=== PATIENT | male | born 1975 | race Caucasian/White ===

== ENCOUNTER 2021-02-07 21:54 | Observation (INO) ==
[2021-02-07] MEDS ORDERED: SODIUM CHLORIDE 0.9% 1,000 ML IV STA (22:30)
[2021-02-07 23:18] LABS: Basophils # 0.1 10*3/uL (0.0-0.2); Basophils % 1.1 % (0.0-0.8); Eosinophils # 0.2 10*3/uL (0.0-0.87); Hematocrit 39.4 VOL% (42.0-52.0); Hemoglobin 13.2 GM/DL (14.0-18.0); Immature Granulocytes % 0.3 %; Immature Granulocytes Absolute 0.02 #; Lymphocytes # 2.1 10*3/uL (1.4-4.0); Lymphocytes % 26.3 % (21.2-54.2); Mean Corpuscular HGB Conc 33.5 GM/DL (32-36); Mean Corpuscular Volume 93.8 FL (87-102); Monocytes % 8.7 % (1.7-12.7); Neutrophils % 61.6 % (38.7-73.9); Platelet Count 274 T/CUMM (130-400); Red Cell Distribution Width 12.7 % (9.3-17.3); White Blood Count 7.9 T/CUMM (4-12)
[2021-02-07 23:33] LABS: Albumin 3.7 G/DL (3.4-5.0); Bilirubin,Total 0.4 MG/DL (0.2-1.0); Calcium 8.8 MG/DL (8.5-10.1); Osmolality,Calculated 271.8 MOS/KG (273-304); Potassium 4.3 MMOL/L (3.5-5.1); Total Protein 7.4 G/DL (6.4-8.2)
[2021-02-08 00:03] LABS: Amorphous Crystals,Urine Many /HPF (Few); Bilirubin,Urine Negative (Negative); Blood, Urine Negative (Negative); Glucose,Urine (UA) Negative (Negative); Ketones,Urine Negative (Negative); Mucus,Urine Occasional /LPF (Occasional); Nitrite,Urine Negative (Negative); Protein,Urine Negative; RBC,Urine 2 /HPF (0-4); Urine Appearance Slightly Hazy (Clear); Urine Color Yellow (Yellow); Urine Specific Gravity 1.015 (1.001-1.035); Urine Urobilinogen < 2.0 EU/DL (0.2-1.0)
[2021-02-08 00:15] LABS: Barbiturates Screen,Urine Negative (Negative); Benzodiazepines Screen,Urine Negative (Negative); Cannabinoid Screen,Urine Positive (Negative); Opiate Screen,Urine Negative (Negative); Phencyclidine Screen,Urine Negative (Negative)
[2021-02-08] MEDS ORDERED: HALOPERIDOL 5 MG/ML AMP IV STA (01:26)
[2021-02-08] MEDS: SODIUM CHLORIDE 0.9% 1,000 ML IV SCH ×2 (04:45→15:29)
[2021-02-08] MEDS: ENOXAPARIN 40 MG/0.4 ML SYRINGE SUBCUT SCH (09:30)
[2021-02-08] MEDS: PANTOPRAZOLE 20 MG TABLET PO SCH (09:30)
[2021-02-08] MEDS: NICOTINE 14 MG/24 HR PATCH TRANSDERM SCH (16:53)
[2021-02-08] MEDS: LORazepam 2 MG/1 ML VIAL IV PRN (23:40)
[2021-02-09] MEDS: SODIUM CHLORIDE 0.9% 1,000 ML IV SCH ×3 (01:03→22:28)
[2021-02-09 06:48] LABS: Basophils # 0.1 10*3/uL (0.0-0.2); Basophils % 1.2 % (0.0-0.8); Eosinophils # 0.3 10*3/uL (0.0-0.87); Eosinophils % 4.1 % (0.00-10.9); Hematocrit 40.1 VOL% (42.0-52.0); Hemoglobin 13.4 GM/DL (14.0-18.0); Immature Granulocytes % 0.1 %; Immature Granulocytes Absolute 0.01 #; Lymphocytes # 2.3 10*3/uL (1.4-4.0); Lymphocytes % 33.7 % (21.2-54.2); Mean Corpuscular HGB Conc 33.4 GM/DL (32-36); Mean Corpuscular Volume 95.2 FL (87-102); Mean Platelet Volume 10.6 FL (9.6-12.0); Monocytes % 8.2 % (1.7-12.7); Neutrophils % 52.7 % (38.7-73.9); Platelet Count 215 T/CUMM (130-400); Red Blood Count 4.21 MC/CUMM (3.8-5.5); Red Cell Distribution Width 12.9 % (9.3-17.3); White Blood Count 6.9 T/CUMM (4-12)
[2021-02-09 07:02] LABS: Calcium 8.4 MG/DL (8.5-10.1); Osmolality,Calculated 274.5 MOS/KG (273-304); Potassium 3.9 MMOL/L (3.5-5.1)
[2021-02-09] MEDS: ENOXAPARIN 40 MG/0.4 ML SYRINGE SUBCUT SCH (08:47)
[2021-02-09] MEDS: NICOTINE 14 MG/24 HR PATCH TRANSDERM SCH (08:47)
[2021-02-09] MEDS: PANTOPRAZOLE 20 MG TABLET PO SCH (08:57)
[2021-02-09] MEDS: LORazepam 2 MG/1 ML VIAL IV PRN (19:58)
[2021-02-10] MEDS: LORazepam 2 MG/1 ML VIAL IV PRN ×4 (03:39→22:01)
[2021-02-10] MEDS: SODIUM CHLORIDE 0.9% 1,000 ML IV SCH (09:22)
[2021-02-10] MEDS: NICOTINE 14 MG/24 HR PATCH TRANSDERM SCH (09:23)
[2021-02-10] MEDS: PANTOPRAZOLE 20 MG TABLET PO SCH (09:24)
[2021-02-10] MEDS: ENOXAPARIN 40 MG/0.4 ML SYRINGE SUBCUT SCH (09:25)
[2021-02-10] MEDS: HALOPERIDOL 5 MG/ML AMP IM PRN (14:20)
[2021-02-11 04:57] LABS: Basophils # 0.1 10*3/uL (0.0-0.2); Basophils % 0.9 % (0.0-0.8); Eosinophils # 0.3 10*3/uL (0.0-0.87); Eosinophils % 3.9 % (0.00-10.9); Hematocrit 37.9 VOL% (42.0-52.0); Hemoglobin 12.9 GM/DL (14.0-18.0); Immature Granulocytes % 0.3 %; Immature Granulocytes Absolute 0.02 #; Lymphocytes # 2.6 10*3/uL (1.4-4.0); Lymphocytes % 37.3 % (21.2-54.2); Mean Corpuscular Volume 94.5 FL (87-102); Mean Platelet Volume 10.7 FL (9.6-12.0); Neutrophils % 45.6 % (38.7-73.9); Platelet Count 211 T/CUMM (130-400); Red Blood Count 4.01 MC/CUMM (3.8-5.5); Red Cell Distribution Width 12.6 % (9.3-17.3)
[2021-02-11 05:21] LABS: Calcium 8.6 MG/DL (8.5-10.1); Osmolality,Calculated 277.4 MOS/KG (273-304); Potassium 3.6 MMOL/L (3.5-5.1)
[2021-02-11] MEDS: SODIUM CHLORIDE 0.9% 1,000 ML IV SCH ×3 (06:17→15:34)
[2021-02-11] MEDS: HALOPERIDOL 5 MG/ML AMP IM PRN (06:18)
[2021-02-11] MEDS: ENOXAPARIN 40 MG/0.4 ML SYRINGE SUBCUT SCH (09:37)
[2021-02-11] MEDS: PANTOPRAZOLE 20 MG TABLET PO SCH (09:37)
[2021-02-11] MEDS: NICOTINE 14 MG/24 HR PATCH TRANSDERM SCH (09:37)
[2021-02-11] MEDS ORDERED: MAGNESIUM HYDROXIDE SUSP 30 ML UDCUP PO PRN (15:08)
[2021-02-11] MEDS: LORazepam 2 MG/1 ML VIAL IV PRN (20:52)
[2021-02-12] MEDS: SODIUM CHLORIDE 0.9% 1,000 ML IV SCH ×2 (03:54→10:16)
[2021-02-12] MEDS: LORazepam 2 MG/1 ML VIAL IV PRN ×3 (04:04→22:55)
[2021-02-12] MEDS: NICOTINE 14 MG/24 HR PATCH TRANSDERM SCH (10:15)
[2021-02-12] MEDS: PANTOPRAZOLE 20 MG TABLET PO SCH (10:15)
[2021-02-12] MEDS: ENOXAPARIN 40 MG/0.4 ML SYRINGE SUBCUT SCH (10:15)
[2021-02-12] MEDS: HALOPERIDOL 5 MG/ML AMP IM PRN (20:57)
[2021-02-13 05:10] LABS: Basophils # 0.1 10*3/uL (0.0-0.2); Basophils % 0.6 % (0.0-0.8); Eosinophils # 0.3 10*3/uL (0.0-0.87); Eosinophils % 2.7 % (0.00-10.9); Hematocrit 38.9 VOL% (42.0-52.0); Immature Granulocytes % 0.4 %; Immature Granulocytes Absolute 0.04 #; Lymphocytes # 2.4 10*3/uL (1.4-4.0); Lymphocytes % 22.6 % (21.2-54.2); Mean Corpuscular HGB Conc 33.4 GM/DL (32-36); Mean Corpuscular Volume 94.6 FL (87-102); Mean Platelet Volume 10.4 FL (9.6-12.0); Monocytes % 10.1 % (1.7-12.7); Neutrophils % 63.6 % (38.7-73.9); Platelet Count 223 T/CUMM (130-400); Red Blood Count 4.11 MC/CUMM (3.8-5.5); Red Cell Distribution Width 12.9 % (9.3-17.3); White Blood Count 10.8 T/CUMM (4-12)
[2021-02-13 05:20] LABS: Calcium 8.3 MG/DL (8.5-10.1); Osmolality,Calculated 279.4 MOS/KG (273-304); Potassium 3.4 MMOL/L (3.5-5.1)
[2021-02-13] MEDS: LORazepam 2 MG/1 ML VIAL IV PRN ×2 (05:58→13:53)
[2021-02-13] MEDS: ENOXAPARIN 40 MG/0.4 ML SYRINGE SUBCUT SCH (09:00)
[2021-02-13] MEDS: NICOTINE 14 MG/24 HR PATCH TRANSDERM SCH (09:01)
[2021-02-13] MEDS: PANTOPRAZOLE 20 MG TABLET PO SCH (09:01)
[2021-02-13 12:18] VITALS: BP 118/66
== END 2021-02-13 14:35 ==
LOC: EDUNIT# → EDBD → N.ED 21:54 → N.EDINP 21:54 → N.4E 02-08 04:30
PROVIDERS: ADMIT Internal Medicine; ATTEND Internal Medicine